=== PATIENT | male | born 1940 | race Caucasian/White ===

== ENCOUNTER 2018-10-07 01:24 | Emergency (ER) | payer MEDICARE, BC ==
[~2018-10-07] VITALS: Ht 180.3 cm; Wt 92.7 kg
[2018-10-07 02:06] LABS: BASOPHILS % (AUTO) 0.6 % (0-1); EOSINOPHILS % (AUTO) 0.6 % (0-6); HEMATOCRIT 49.1 % (42.0-52.0); HEMOGLOBIN 16.6 g/dl (14.0-17.9); LYMPHOCYTES # (AUTO) 1.9 X10'3 (1.1-4.8); LYMPHOCYTES % (AUTO) 27.8 % (21-51); MEAN CORPUSCULAR HEMOGLOBIN 32.4 PG (27.0-31.0); MEAN CORPUSCULAR HGB CONC 33.7 g/dL (33.0-36.5); MEAN CORPUSCULAR VOLUME 96.1 FL (78-98); MEAN PLATELET VOLUME 9.3 FL (7.4-10.4); MONOCYTES # (AUTO) 0.6 X10'3 (0-0.9); MONOCYTES % (AUTO) 9.5 % (2-12); NEUTROPHILS # (AUTO) 4.2 X10'3 (1.8-7.7); NEUTROPHILS % (AUTO) 61.5 % (42-75); PLATELET COUNT 133 X10'3 (140-440); RED BLOOD COUNT 5.11 X10'6 (4.70-6.10); RED CELL DISTRIBUTION WIDTH 14.8 % (11.5-14.5); WHITE BLOOD COUNT 6.7 X10'3 (4.5-11.0)
[2018-10-07 02:16] LABS: ALANINE AMINOTRANSFERASE 50 U/L (12-78); ALBUMIN 3.5 G/DL (3.4-5.0); ALBUMIN/GLOBULIN RATIO 1.1 (1.1-1.5); ANION GAP 9 (8-16); ASPARTATE AMINO TRANSFERASE 32 U/L (10-37); BILIRUBIN,TOTAL 0.6 MG/DL (0.1-1.0); BLOOD UREA NITROGEN 27 MG/DL (7-18); CALCIUM 8.6 MG/DL (8.5-10.1); CHLORIDE 104 MMOL/L (99-107); CREATININE 1.35 MG/DL (0.60-1.10); GLUCOSE 122 MG/DL (70-104); PARTIAL THROMBOPLASTIN TIME 38 SECONDS (22-32); POTASSIUM 4.1 MMOL/L (3.5-5.1); SODIUM 141 MMOL/L (135-145); TOTAL CARBON DIOXIDE 27.6 MMOL/L (24-32); TOTAL PROTEIN 6.6 G/DL (6.4-8.2); eGFR 51 ML/MIN
[2018-10-07 02:43] LABS: ALKALINE PHOSPHATASE 78 IU/L (46-116)
[2018-10-07] MEDS ORDERED: COU5T PO (05:15)
[2018-10-07] MEDS ORDERED: MAGN400T28 PO (05:15)
[2018-10-07] MEDS ORDERED: SIMV80TA89 PO (05:15)
[2018-10-07] MEDS ORDERED: ENAL20TA PO (05:15)
[2018-10-07] MEDS ORDERED: FURO80TA3 PO (05:15)
[2018-10-07] MEDS ORDERED: SILD20TA2 PO (05:15)
[2018-10-07] MEDS ORDERED: CARV6.253 PO (05:15)
[2018-10-07] MEDS ORDERED: PRIM250T32 PO (05:15)
[2018-10-07] MEDS ORDERED: POTA10TA36 PO (05:15)
[2018-10-07] MEDS ORDERED: VARD20TA31 PO (05:15)
[2018-10-07] MEDS ORDERED: SILD20TA PO (05:15)
[2018-10-07] MEDS ORDERED: SPIR25TA5 PO (05:15)
[2018-10-07 05:41] LABS: CHOL/HDL RATIO 4.3 (0.00-4.99); CHOLESTEROL 139 MG/DL (0-200); HDL CHOLESTEROL 32 MG/DL (35-60); LDL CHOLESTEROL 87 MG/DL (50-100); TRIGLYCERIDES 156 MG/DL (20-135)
[2018-10-07 05:45] VITALS: BP 97/59
[2018-10-07 05:46] LABS: D-DIMER 0.25 MG/L FEU (0-0.50)
== END 2018-10-07 05:46 | disposition home or self-care (01) ==
LOC: ER 01:25
DX: R07.89 Other chest pain (principal); R06.02 Shortness of breath; R00.2 Palpitations; R53.1 Weakness; R05 Cough; R61 Generalized hyperhidrosis; I48.91 Unspecified atrial fibrillation; I10 Essential (primary) hypertension; Z98.890 Other specified postprocedural states; Z79.899 Other long term (current) drug therapy
CPT/HCPCS: 36415; 71045; 80053; 80061; 84439; 84443; 84484; 85025; 85379; 85610; 85730; 93005; 99285

== ENCOUNTER 2018-10-28 09:47 | Inpatient (IN) | payer MEDICARE, BC ==
[~2018-10-28] VITALS: Ht 180.3 cm; Wt 99.5 kg
[~2018-10-28 09:47] MED LIST: CARV6.253 PO; COU5T PO; ENAL20TA PO; FURO80TA3 PO; MAGN400T28 PO; POTA10TA36 PO; PRIM250T32 PO; SILD20TA PO; SILD20TA2 PO; SIMV80TA89 PO; SPIR25TA5 PO; VARD20TA31 PO
[2018-10-28 11:13] LABS: BASOPHILS % (AUTO) 0.4 % (0-1); EOSINOPHILS % (AUTO) 0.5 % (0-6); HEMATOCRIT 51.8 % (42.0-52.0); HEMOGLOBIN 17.1 g/dl (14.0-17.9); LYMPHOCYTES # (AUTO) 1.7 X10'3 (1.1-4.8); LYMPHOCYTES % (AUTO) 25.4 % (21-51); MEAN CORPUSCULAR HEMOGLOBIN 32.7 PG (27.0-31.0); MEAN CORPUSCULAR VOLUME 98.9 FL (78-98); MEAN PLATELET VOLUME 9.6 FL (7.4-10.4); MONOCYTES # (AUTO) 0.8 X10'3 (0-0.9); MONOCYTES % (AUTO) 11.1 % (2-12); NEUTROPHILS # (AUTO) 4.3 X10'3 (1.8-7.7); NEUTROPHILS % (AUTO) 62.6 % (42-75); PLATELET COUNT 99 X10'3 (140-440); RED BLOOD COUNT 5.24 X10'6 (4.70-6.10); RED CELL DISTRIBUTION WIDTH 16.9 % (11.5-14.5); WHITE BLOOD COUNT 6.8 X10'3 (4.5-11.0)
[2018-10-28 11:31] LABS: ALANINE AMINOTRANSFERASE 163 U/L (12-78); ALBUMIN 3.3 G/DL (3.4-5.0); ALBUMIN/GLOBULIN RATIO 1.2 (1.1-1.5); ALKALINE PHOSPHATASE 160 IU/L (46-116); ANION GAP 7 (8-16); ASPARTATE AMINO TRANSFERASE 130 U/L (10-37); BILIRUBIN,TOTAL 0.8 MG/DL (0.1-1.0); BLOOD UREA NITROGEN 37 MG/DL (7-18); BUN/CREATININE RATIO 23.9 (5.4-32.0); CALCIUM 8.3 MG/DL (8.5-10.1); CHLORIDE 105 MMOL/L (99-107); CREATININE 1.55 MG/DL (0.60-1.10); GLUCOSE 99 MG/DL (70-104); POTASSIUM 5.3 MMOL/L (3.5-5.1); SODIUM 139 MMOL/L (135-145); TOTAL CARBON DIOXIDE 27.2 MMOL/L (24-32); TOTAL PROTEIN 6.1 G/DL (6.4-8.2); eGFR 44 ML/MIN
[2018-10-28 11:34] LABS: PARTIAL THROMBOPLASTIN TIME 43 SECONDS (22-32)
[2018-10-28] MEDS ORDERED: furosemide 10 MG/1 ML 10ml inj IV ONE (12:45)
[2018-10-28] MEDS ORDERED: FLO0.4C PO (13:07)
[2018-10-28] MEDS ORDERED: ondansetron/PF 4mg/2ml inj IV PRN (13:20)
[2018-10-28] MEDS ORDERED: magnesium hydroxide 30ml (MOM) UD suspension PO PRN (13:20)
[2018-10-28] MEDS ORDERED: mag hydrox/Alum hydrox/simeth 30ml oral suspension PO PRN (13:20)
[2018-10-28] MEDS ORDERED: potassium Cl 20 mEq SR tablet PO PRN ×2 (13:20)
[2018-10-28] MEDS ORDERED: acetaminophen 325mg tablet PO PRN ×2 (13:20)
[2018-10-28] MEDS ORDERED: potassium CL 10mEq/100ml bag 100 ML IV PRN ×2 (13:20)
--- NOTE | 2018-10-28 14:30 | NUR ---
Pt arrived on unit from ED. Vitals stable. Oriented Pt to room and call light.
[2018-10-28] MEDS ORDERED: BIMA2.5D EACHEYE (14:44)
[2018-10-28 15:00] VITALS: BP 104/79
[2018-10-28 18:00] VITALS: BP 104/76
--- NOTE | 2018-10-28 18:00 | NUR ---
Problems reprioritized. Patient report given, questions answered & plan of care reviewed with Liss BAGLEY.
--- NOTE | 2018-10-28 18:37 | NUR ---
Patient in room PCU 3026. I have received report from David BAGLEY and had the opportunity to ask questions and assume patient care.
[2018-10-28] MEDS: furosemide 10 MG/1 ML 10ml inj IV SCH (20:47)
[2018-10-28] MEDS: carvedilol 6.25mg tablet PO SCH (20:48)
[2018-10-28] MEDS: spironolactone 25 MG tablet PO SCH (20:48)
[2018-10-28] MEDS: primidone 250mg tablet PO SCH (20:50)
[2018-10-28] MEDS: latanoprost 0.005% 2.5ml ophthalmic drops EACHEYE SCH (20:50)
[2018-10-28 22:00] VITALS: BP 94/74
[2018-10-28] MEDS: temazepam 15mg capsule PO PRN (23:16)
[2018-10-28] MEDS: HYDROcodone/acetaminophen 5mg/325mg tablet PO PRN (23:17)
[2018-10-29] VITALS (17 sets, daily range): BP systolic 73–99; BP diastolic 46–74
--- NOTE | 2018-10-29 05:00 | NUR ---
Assisted to BR to void. Incont of lge void in BR, unable to measure.
[2018-10-29 05:28] LABS: EOSINOPHILS % (AUTO) 0.3 % (0-6); MONOCYTES # (AUTO) 0.8 X10'3 (0-0.9); NEUTROPHILS # (AUTO) 4.9 X10'3 (1.8-7.7); WHITE BLOOD COUNT 7.9 X10'3 (4.5-11.0)
[2018-10-29 05:30] LABS: ALBUMIN 3.3 G/DL (3.4-5.0); ANION GAP 6 (8-16); BASOPHILS % (AUTO) 0.2 % (0-1); BLOOD UREA NITROGEN 37 MG/DL (7-18); BUN/CREATININE RATIO 23.1 (5.4-32.0); CALCIUM 8.6 MG/DL (8.5-10.1); CHLORIDE 102 MMOL/L (99-107); GLUCOSE 89 MG/DL (70-104); HEMOGLOBIN 17.6 g/dl (14.0-17.9); LYMPHOCYTES # (AUTO) 2.2 X10'3 (1.1-4.8); LYMPHOCYTES % (AUTO) 28.3 % (21-51); MAGNESIUM 2.1 MG/DL (1.5-2.4); MEAN CORPUSCULAR HEMOGLOBIN 33.9 PG (27.0-31.0); MEAN CORPUSCULAR HGB CONC 33.9 g/dL (33.0-36.5); MEAN CORPUSCULAR VOLUME 100.1 FL (78-98); MEAN PLATELET VOLUME 10.2 FL (7.4-10.4); MONOCYTES % (AUTO) 9.6 % (2-12); NEUTROPHILS % (AUTO) 61.6 % (42-75); PLATELET COUNT 83 X10'3 (140-440); POTASSIUM 5.2 MMOL/L (3.5-5.1); RED BLOOD COUNT 5.19 X10'6 (4.70-6.10); RED CELL DISTRIBUTION WIDTH 16.6 % (11.5-14.5); SODIUM 136 MMOL/L (135-145); TOTAL CARBON DIOXIDE 28.2 MMOL/L (24-32); eGFR 42 ML/MIN
--- NOTE | 2018-10-29 06:52 | NUR ---
Patient in room PCU 3026. I have received report from KEVYN Leija and had the opportunity to ask questions and assume patient care. Pt is sleeping with neighbor's TV blasting. Will continue to monitor.
--- NOTE | 2018-10-29 06:53 | NUR ---
Problems reprioritized. Patient report given, questions answered & plan of care reviewed with Dinah RN.
--- NOTE | 2018-10-29 07:53 | NUR ---
Sent to Dr Damian PAGER ID: [phone] MESSAGE: RE: Erik Suazo. FYI BP trending down. Most recent is 88/75 with a MAP of 81. HR 75. Holding heart meds and both diuretics. Also, pt has spironolactone ordered; K was 5.2 today. -Dniah [phone]
[2018-10-29] MEDS: atorvastatin 20mg tablet PO SCH (07:54)
[2018-10-29] MEDS: primidone 250mg tablet PO SCH ×2 (07:55→20:10)
[2018-10-29] MEDS: K and/or MAG REPLACEMENT MC SCH (07:57)
[2018-10-29] MEDS: furosemide 10 MG/1 ML 10ml inj IV SCH ×3 (07:58→20:00)
[2018-10-29] MEDS: tamsulosin 0.4mg capsule PO SCH (07:58)
[2018-10-29] MEDS: carvedilol 6.25mg tablet PO SCH ×3 (07:58→20:00)
[2018-10-29] MEDS: spironolactone 25 MG tablet PO SCH ×3 (07:58→20:00)
[2018-10-29] MEDS: lisinopril 20mg tablet PO SCH ×2 (07:58→08:29)
[2018-10-29] MEDS ORDERED: ENALAPRIL MALEATE 20 MG PO SCH (08:00)
--- NOTE | 2018-10-29 08:24 | NUR ---
Dr Damian informed of pt's BP 88/75 MAP 81; per Dr Damian, ok to give Coreg, Lasix, Aldactone, and Lisinopril staggered.
--- NOTE | 2018-10-29 12:09 | NUR ---
Malnutrition consult: Current documented wt is 99.5 kg using chair scale with obese BMI of 30.6 and no reliable wt hx in EMR. Per H&P pt c/o gaining wt over the past 5 weeks and has been admit here with CHF exacerbation to get IV diuresing. Wt likely to fluctuate with changes in fluid status. Pt documented with 50-75% PO intake first meal on heart healthy diet and appears well-nourished per H&P. Pt with BLE 1+ trace edema and no decrease in muscle strength. Pt currently does not meet criteria for malnutrition. Will continue to follow. Addendum: 10/29/18 at [address] Amended: Links added.
[2018-10-29] MEDS: DOBUTamine-DoBUTrex 500mg/D5W 250 ML IV SCH (14:31)
--- NOTE | 2018-10-29 15:19 | NUR ---
Sent to Dr Damian PAGER ID: [phone] MESSAGE: RE: Erik Suazo [id number]. Pt started on dobutamine drip @ 3mcg/kg. BP 79/60, 80/58 upon retake. MAP 64 each time. FYI unless advised otherwise. -Dinah [phone]
--- NOTE | 2018-10-29 18:32 | NUR ---
Patient in room PCU 3026. I have received report from Dinah BAGLEY and had the opportunity to ask questions and assume patient care.
--- NOTE | 2018-10-29 18:41 | NUR ---
Problems reprioritized. Patient report given, questions answered & plan of care reviewed with KEVYN Leija.
[2018-10-29] MEDS: latanoprost 0.005% 2.5ml ophthalmic drops EACHEYE SCH (20:10)
[2018-10-29] MEDS: HYDROcodone/acetaminophen 5mg/325mg tablet PO PRN (20:11)
--- NOTE | 2018-10-29 21:00 | NUR ---
Coreg, Aldactone, and Lasix held rth Addendum: 10/29/18 at 2150 by Liss Monroy RN Coreg, Aldactone, and IV Lasix held due to persistent SBP in 90s and 80s as well as the K of 5.2 this am. Dobutamine infusing at 3mcg as ordered. To contact MD regarding this response to Dobutamine dose.
[2018-10-29] MEDS: temazepam 15mg capsule PO PRN (21:31)
--- NOTE | 2018-10-29 23:00 | NUR ---
Dr. Ansari returned call and BPs and MAP readings reported. No new orders given at this time.
[2018-10-30] VITALS (8 sets, daily range): BP systolic 79–110; BP diastolic 52–86
[2018-10-30] MEDS: HYDROcodone/acetaminophen 5mg/325mg tablet PO PRN (02:44)
[2018-10-30 06:02] LABS: BASOPHILS % (AUTO) 0.2 % (0-1); EOSINOPHILS % (AUTO) 0.6 % (0-6); HEMATOCRIT 45.3 % (42.0-52.0); HEMOGLOBIN 15.1 g/dl (14.0-17.9); LYMPHOCYTES # (AUTO) 1.9 X10'3 (1.1-4.8); LYMPHOCYTES % (AUTO) 31.2 % (21-51); MEAN CORPUSCULAR HEMOGLOBIN 32.9 PG (27.0-31.0); MEAN CORPUSCULAR HGB CONC 33.4 g/dL (33.0-36.5); MEAN CORPUSCULAR VOLUME 98.7 FL (78-98); MEAN PLATELET VOLUME 9.4 FL (7.4-10.4); MONOCYTES # (AUTO) 0.8 X10'3 (0-0.9); MONOCYTES % (AUTO) 12.2 % (2-12); NEUTROPHILS # (AUTO) 3.5 X10'3 (1.8-7.7); NEUTROPHILS % (AUTO) 55.8 % (42-75); PLATELET COUNT 82 X10'3 (140-440); RED BLOOD COUNT 4.59 X10'6 (4.70-6.10); RED CELL DISTRIBUTION WIDTH 16.8 % (11.5-14.5); WHITE BLOOD COUNT 6.2 X10'3 (4.5-11.0)
--- NOTE | 2018-10-30 06:19 | NUR ---
Problems reprioritized. Patient report given, questions answered & plan of care reviewed with Jesse BAGLEY.
[2018-10-30 06:35] LABS: ALBUMIN 2.7 G/DL (3.4-5.0); ANION GAP 8 (8-16); BLOOD UREA NITROGEN 35 MG/DL (7-18); BUN/CREATININE RATIO 26.1 (5.4-32.0); CALCIUM 7.9 MG/DL (8.5-10.1); CHLORIDE 103 MMOL/L (99-107); CREATININE 1.34 MG/DL (0.60-1.10); GLUCOSE 103 MG/DL (70-104); MAGNESIUM 2.1 MG/DL (1.5-2.4); SODIUM 139 MMOL/L (135-145); TOTAL CARBON DIOXIDE 28.1 MMOL/L (24-32); eGFR 52 ML/MIN
--- NOTE | 2018-10-30 06:58 | NUR ---
Patient in room PCU 3026. I have received report from KEVYN Leija and had the opportunity to ask questions and assume patient care.
[2018-10-30] MEDS: atorvastatin 20mg tablet PO SCH (07:17)
[2018-10-30] MEDS: primidone 250mg tablet PO SCH ×2 (07:19→20:43)
[2018-10-30] MEDS: tamsulosin 0.4mg capsule PO SCH (07:19)
[2018-10-30] MEDS: K and/or MAG REPLACEMENT MC SCH (08:00)
[2018-10-30] MEDS: spironolactone 25 MG tablet PO SCH ×2 (08:00→20:00)
[2018-10-30] MEDS: lisinopril 20mg tablet PO SCH (08:00)
[2018-10-30] MEDS: carvedilol 6.25mg tablet PO SCH ×2 (08:00→20:44)
[2018-10-30] MEDS: furosemide 10 MG/1 ML 10ml inj IV SCH (08:00)
--- NOTE | 2018-10-30 09:49 | NUR ---
F/u: Pt Na-restricted 500mg/d diet ordered. Unable to provide only 500mg Na daily and pt Na WNL since admit on prior heart healthy diet receiving ~1800mg/d Na w/ 75-100% PO. Will continue to monitor. Addendum: 10/30/18 at [address] Amended: Links added.
--- NOTE | 2018-10-30 11:14 | NUR ---
PAGER ID: [phone] MESSAGE: [id number]-Suazo. Can you call me to confirm the Dobutamine dosage? Jesse BAGLEY [phone]
[2018-10-30] MEDS: DOBUTamine-DoBUTrex 500mg/D5W 250 ML IV SCH (17:56)
--- NOTE | 2018-10-30 18:07 | NUR ---
Orienteer documentation: I have reviewed and agree with all interventions, assessments performed and documented by Kaelyn BAGLEY.
--- NOTE | 2018-10-30 18:26 | NUR ---
Patient in room PCU 3026. I have received report from Jesse and Kavita BAGLEY and had the opportunity to ask questions and assume patient care.
--- NOTE | 2018-10-30 18:36 | NUR ---
Problems reprioritized. Patient report given, questions answered & plan of care reviewed with KEVYN Be.
--- NOTE | 2018-10-30 20:00 | NUR ---
Telephone order Dr Jerry change parameters to IV Lasix 40mg BID hold if SBP < 90 and change parameters of PO 6.25mg Coreg BID hold SBP <80 Will continue to monitor
[2018-10-30] MEDS: furosemide 40mg/4ml inj IV SCH (20:11)
[2018-10-30] MEDS: latanoprost 0.005% 2.5ml ophthalmic drops EACHEYE SCH (20:44)
[2018-10-30] MEDS ORDERED: warfarin 5mg tablet PO ONE (21:00)
--- NOTE | 2018-10-30 22:35 | NUR ---
Pt requested sleeping pill and to be moved to a different room.
[2018-10-31] VITALS (10 sets, daily range): BP systolic 79–103; BP diastolic 52–79
[2018-10-31 06:04] LABS: HEMATOCRIT 48.8 % (42.0-52.0); MEAN CORPUSCULAR HEMOGLOBIN 32.7 PG (27.0-31.0); MONOCYTES # (AUTO) 0.6 X10'3 (0-0.9); MONOCYTES % (AUTO) 10.4 % (2-12); RED CELL DISTRIBUTION WIDTH 17.2 % (11.5-14.5); WHITE BLOOD COUNT 5.9 X10'3 (4.5-11.0)
[2018-10-31 06:07] LABS: BASOPHILS % (AUTO) 0.7 % (0-1); EOSINOPHILS # (AUTO) 0.1 X10'3 (0-0.9); LYMPHOCYTES # (AUTO) 1.7 X10'3 (1.1-4.8); LYMPHOCYTES % (AUTO) 29.4 % (21-51); MEAN CORPUSCULAR HGB CONC 32.7 g/dL (33.0-36.5); MEAN CORPUSCULAR VOLUME 100.1 FL (78-98); MEAN PLATELET VOLUME 9.9 FL (7.4-10.4); NEUTROPHILS # (AUTO) 3.4 X10'3 (1.8-7.7); NEUTROPHILS % (AUTO) 58.5 % (42-75); PLATELET COUNT 85 X10'3 (140-440); RED BLOOD COUNT 4.88 X10'6 (4.70-6.10)
[2018-10-31 06:16] LABS: ALBUMIN 2.8 G/DL (3.4-5.0); ANION GAP 7 (8-16); BLOOD UREA NITROGEN 22 MG/DL (7-18); BUN/CREATININE RATIO 19.6 (5.4-32.0); CALCIUM 7.8 MG/DL (8.5-10.1); CHLORIDE 103 MMOL/L (99-107); CREATININE 1.12 MG/DL (0.60-1.10); GLUCOSE 85 MG/DL (70-104); POTASSIUM 4.5 MMOL/L (3.5-5.1); SODIUM 139 MMOL/L (135-145); TOTAL CARBON DIOXIDE 28.8 MMOL/L (24-32); eGFR 64 ML/MIN
--- NOTE | 2018-10-31 06:24 | NUR ---
Problems reprioritized. Patient report given, questions answered & plan of care reviewed with Corinna BAGLEY.
--- NOTE | 2018-10-31 06:36 | NUR ---
Patient in room PCU 3023. I have received report from Indiana BAGLEY and had the opportunity to ask questions and assume patient care. Pt is in bed sleeping, all needs met at this time. will continue to monitor.
[2018-10-31] MEDS ORDERED: enoxaparin 40mg/0.4ml syringe SUBCUT SCH (08:00)
[2018-10-31] MEDS: K and/or MAG REPLACEMENT MC SCH (08:00)
[2018-10-31] MEDS: spironolactone 25 MG tablet PO SCH ×3 (08:25→21:20)
[2018-10-31] MEDS: tamsulosin 0.4mg capsule PO SCH (08:26)
[2018-10-31] MEDS: lisinopril 10 MG tablet PO SCH (08:26)
[2018-10-31] MEDS: furosemide 40mg/4ml inj IV SCH ×3 (08:26→21:20)
[2018-10-31] MEDS: carvedilol 6.25mg tablet PO SCH ×3 (08:26→21:20)
[2018-10-31] MEDS: atorvastatin 20mg tablet PO SCH (08:26)
[2018-10-31] MEDS: primidone 250mg tablet PO SCH ×2 (08:26→20:09)
[2018-10-31] MEDS: DOBUTamine-DoBUTrex 500mg/D5W 250 ML IV SCH (17:36)
--- NOTE | 2018-10-31 17:45 | NUR ---
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 fib, pt also has BP: 82/60 (66), pt is asymptomatic. Thanks Cielo [phone]
--- NOTE | 2018-10-31 18:27 | NUR ---
Problems reprioritized. Patient report given, questions answered & plan of care reviewed with Oksana BAGLEY.
--- NOTE | 2018-10-31 18:57 | NUR ---
Patient in room PCU 3023. I have received report from Corinan BAGLEY and had the opportunity to ask questions and assume patient care.
[2018-10-31] MEDS ORDERED: warfarin 7.5mg tablet PO ONE (21:00)
[2018-10-31] MEDS: latanoprost 0.005% 2.5ml ophthalmic drops EACHEYE SCH (21:20)
[2018-10-31] MEDS ORDERED: zolpidem 5mg tablet PO PRN (22:20)
[2018-11-01] VITALS (15 sets, daily range): BP systolic 83–150; BP diastolic 62–80
[2018-11-01 05:11] LABS: BASOPHILS # (AUTO) 0.1 X10'3 (0-0.2); EOSINOPHILS % (AUTO) 0.7 % (0-6); HEMOGLOBIN 15.3 g/dl (14.0-17.9); LYMPHOCYTES # (AUTO) 1.4 X10'3 (1.1-4.8); LYMPHOCYTES % (AUTO) 23.9 % (21-51); MEAN CORPUSCULAR HEMOGLOBIN 32.9 PG (27.0-31.0); MEAN CORPUSCULAR HGB CONC 33.2 g/dL (33.0-36.5); MEAN PLATELET VOLUME 9.1 FL (7.4-10.4); MONOCYTES # (AUTO) 0.6 X10'3 (0-0.9); MONOCYTES % (AUTO) 9.7 % (2-12); NEUTROPHILS # (AUTO) 3.7 X10'3 (1.8-7.7); NEUTROPHILS % (AUTO) 63.7 % (42-75); PLATELET COUNT 76 X10'3 (140-440); RED BLOOD COUNT 4.64 X10'6 (4.70-6.10); RED CELL DISTRIBUTION WIDTH 17.3 % (11.5-14.5); WHITE BLOOD COUNT 5.8 X10'3 (4.5-11.0)
[2018-11-01 05:37] LABS: ALBUMIN 2.7 G/DL (3.4-5.0); ANION GAP 5 (8-16); CALCIUM 7.6 MG/DL (8.5-10.1); CHLORIDE 102 MMOL/L (99-107); CREATININE 1.34 MG/DL (0.60-1.10); GLUCOSE 81 MG/DL (70-104); POTASSIUM 4.5 MMOL/L (3.5-5.1); SODIUM 138 MMOL/L (135-145); TOTAL CARBON DIOXIDE 31.2 MMOL/L (24-32); eGFR 52 ML/MIN
[2018-11-01 05:51] LABS: ANISOCYTOSIS 1+; LARGE PLATELETS FEW; PLATELET ESTIMATE DECREASED
[2018-11-01 05:55] LABS: BLOOD UREA NITROGEN 22 MG/DL (7-18); BUN/CREATININE RATIO 16.4 (5.4-32.0)
--- NOTE | 2018-11-01 06:20 | NUR ---
Problems reprioritized. Patient report given, questions answered & plan of care reviewed with Karen BAGLEY.
--- NOTE | 2018-11-01 06:49 | NUR ---
Patient in room PCU 3023. I have received report from Oksana BAGLEY and had the opportunity to ask questions and assume patient care. Patient asleep in bed. In no acute distress. Dobutamine gtt @ 2.99 mcg/kg/min.
[2018-11-01] MEDS: K and/or MAG REPLACEMENT MC SCH (08:00)
[2018-11-01] MEDS: lisinopril 10 MG tablet PO SCH (08:16)
[2018-11-01] MEDS: digoxin 250mcg (0.25mg) tablet PO SCH (08:16)
[2018-11-01] MEDS: tamsulosin 0.4mg capsule PO SCH (08:16)
[2018-11-01] MEDS: atorvastatin 20mg tablet PO SCH (08:16)
[2018-11-01] MEDS: carvedilol 6.25mg tablet PO SCH ×2 (08:16→20:00)
[2018-11-01] MEDS: furosemide 40mg/4ml inj IV SCH ×2 (08:17→20:00)
[2018-11-01] MEDS: primidone 250mg tablet PO SCH ×2 (08:17→20:00)
[2018-11-01] MEDS: spironolactone 25 MG tablet PO SCH ×2 (08:17→20:00)
--- NOTE | 2018-11-01 19:03 | NUR ---
Problems reprioritized. Patient report given, questions answered & plan of care reviewed with Patient stable at transfer of care..
--- NOTE | 2018-11-01 19:03 | NUR ---
Patient in room PCU 3023. I have received report from Karen BAGLEY and had the opportunity to ask questions and assume patient care.
[2018-11-01] MEDS: DOBUTamine-DoBUTrex 500mg/D5W 250 ML IV SCH (19:58)
[2018-11-01] MEDS: latanoprost 0.005% 2.5ml ophthalmic drops EACHEYE SCH (20:01)
[2018-11-01] MEDS ORDERED: warfarin 7.5mg tablet PO ONE (21:00)
[2018-11-02] VITALS (17 sets, daily range): BP systolic 78–124; BP diastolic 50–102
[2018-11-02 05:20] LABS: BASOPHILS % (AUTO) 0.4 % (0-1); EOSINOPHILS # (AUTO) 0.1 X10'3 (0-0.9); EOSINOPHILS % (AUTO) 1.2 % (0-6); HEMATOCRIT 45.1 % (42.0-52.0); LYMPHOCYTES # (AUTO) 1.5 X10'3 (1.1-4.8); LYMPHOCYTES % (AUTO) 27.7 % (21-51); MEAN CORPUSCULAR HEMOGLOBIN 32.8 PG (27.0-31.0); MEAN CORPUSCULAR HGB CONC 33.2 g/dL (33.0-36.5); MEAN CORPUSCULAR VOLUME 98.8 FL (78-98); MEAN PLATELET VOLUME 9.6 FL (7.4-10.4); MONOCYTES # (AUTO) 0.7 X10'3 (0-0.9); MONOCYTES % (AUTO) 12.3 % (2-12); NEUTROPHILS # (AUTO) 3.2 X10'3 (1.8-7.7); NEUTROPHILS % (AUTO) 58.4 % (42-75); PLATELET COUNT 87 X10'3 (140-440); RED BLOOD COUNT 4.56 X10'6 (4.70-6.10); RED CELL DISTRIBUTION WIDTH 17.5 % (11.5-14.5); WHITE BLOOD COUNT 5.5 X10'3 (4.5-11.0)
[2018-11-02 05:34] LABS: ALBUMIN 2.7 G/DL (3.4-5.0); ANION GAP 7 (8-16); BLOOD UREA NITROGEN 16 MG/DL (7-18); BUN/CREATININE RATIO 14.2 (5.4-32.0); CALCIUM 7.5 MG/DL (8.5-10.1); CHLORIDE 104 MMOL/L (99-107); CREATININE 1.13 MG/DL (0.60-1.10); GLUCOSE 85 MG/DL (70-104); POTASSIUM 4.2 MMOL/L (3.5-5.1); SODIUM 140 MMOL/L (135-145); TOTAL CARBON DIOXIDE 29.4 MMOL/L (24-32); eGFR 63 ML/MIN
--- NOTE | 2018-11-02 06:37 | NUR ---
Problems reprioritized. Patient report given, questions answered & plan of care reviewed with Karen BAGLEY and Jocelyn BAGLEY.
--- NOTE | 2018-11-02 06:49 | NUR ---
Patient in room PCU 3023. I have received report from Oksana BAGLEY and had the opportunity to ask questions and assume patient care. Patient asleep in bed. Dobutamine gtt @ 2.99 mcg/kg. All immediate needs met at this time.
--- NOTE | 2018-11-02 06:51 | NUR ---
Patient in room PCU 3023b. I have received report from KEVYN Gandhi and had the opportunity to ask questions and assume patient care. Pt asleep in bed at this time Dobutamine gtt running at 2.99mcg. All needs met.
[2018-11-02] MEDS: atorvastatin 20mg tablet PO SCH (07:46)
[2018-11-02] MEDS: lisinopril 10 MG tablet PO SCH (07:46)
[2018-11-02] MEDS: spironolactone 25 MG tablet PO SCH ×2 (07:46→20:27)
[2018-11-02] MEDS: primidone 250mg tablet PO SCH ×2 (07:47→20:27)
[2018-11-02] MEDS: digoxin 250mcg (0.25mg) tablet PO SCH (07:47)
[2018-11-02] MEDS: carvedilol 6.25mg tablet PO SCH ×2 (07:47→20:25)
[2018-11-02] MEDS: tamsulosin 0.4mg capsule PO SCH ×2 (07:47→08:00)
[2018-11-02] MEDS: furosemide 40mg/4ml inj IV SCH (07:47)
[2018-11-02] MEDS: K and/or MAG REPLACEMENT MC SCH (07:48)
--- NOTE | 2018-11-02 08:50 | NUR ---
New orders from Dr. Damian: Discontinue flomax 0.4 mg PO. Stop dobutamine gtt 11/03 0000.
--- NOTE | 2018-11-02 11:03 | NUR ---
Initial: Pt PO 75-100% meals meeting needs. LBM 11/01. No nutrition concerns at this time. Will continue to monitor. Malnutrition consult: Current documented wt is 99.5 kg using chair scale with obese BMI of 30.6 and no reliable wt hx in EMR. Per H&P pt c/o gaining wt over the past 5 weeks and has been admit here with CHF exacerbation to get IV diuresing. Wt likely to fluctuate with changes in fluid status. Pt documented with 50-75% PO intake first meal on heart healthy diet and appears well-nourished per H&P. Pt with BLE 1+ trace edema and no decrease in muscle strength. Pt currently does not meet criteria for malnutrition. Will continue to follow. Rec: 1. continue Na-restricted/heart healthy diet per MD 2. wt per rx Addendum: 11/02/18 at [address] Amended: Links added.
--- NOTE | 2018-11-02 17:19 | NUR ---
New orders from Dr. Jerry: D/C 40 mg IV lasix now. Start 80 mg PO lasix BID start @ 11/02.
--- NOTE | 2018-11-02 18:09 | NUR ---
Orientee documentation: I have reviewed and agree with all interventions, assessments performed and documented by KEVYN Banks. Orientee Medication Administration: For this medication-pass time frame, all medication were reviewed, dispensed, administered and documented per hospital policy by KEVYN Banks.
--- NOTE | 2018-11-02 18:32 | NUR ---
Problems reprioritized. Patient report given, questions answered & plan of care reviewed with Cristóbal BAGLEY. Patient stable at transfer of care.
--- NOTE | 2018-11-02 19:44 | NUR ---
Patient in room PCU 3023b. I have received report from Karen, RN and KEVYN Banks and had the opportunity to ask questions and assume patient care. Patient awake for bedside report and stable at this time with at bedside. 20 G L AC saline locked and on room air. Will continue to monitor closely.
[2018-11-02] MEDS: furosemide 40mg tablet PO SCH (20:26)
[2018-11-02] MEDS: latanoprost 0.005% 2.5ml ophthalmic drops EACHEYE SCH (20:29)
[2018-11-02] MEDS ORDERED: warfarin 3mg tablet PO ONE (21:00)
[2018-11-03] VITALS (7 sets, daily range): BP systolic 89–96; BP diastolic 62–76
--- NOTE | 2018-11-03 00:10 | NUR ---
Dobutamine drip DC'd at 0000 per provider order. Patient has 20G L AC and is saline locked. Will continue to monitor closely. Addendum: 11/03/18 at 0200 by Beena Rich RN q2hr VS from [id number] completed and charted.
--- NOTE | 2018-11-03 06:22 | NUR ---
Patient in room PCU 3023. I have received report from Cristóbal BAGLEY and had the opportunity to ask questions and assume patient care.
--- NOTE | 2018-11-03 06:29 | NUR ---
Problems reprioritized. Patient report given, questions answered & plan of care reviewed with KEVYN Barlow and KEVYN Boyd.
[2018-11-03] MEDS: carvedilol 6.25mg tablet PO SCH ×2 (07:30→20:17)
[2018-11-03] MEDS: lisinopril 10 MG tablet PO SCH (07:32)
[2018-11-03] MEDS: atorvastatin 20mg tablet PO SCH (07:32)
[2018-11-03] MEDS: furosemide 40mg tablet PO SCH ×2 (07:32→20:10)
[2018-11-03] MEDS: primidone 250mg tablet PO SCH ×2 (07:33→20:10)
[2018-11-03] MEDS: spironolactone 25 MG tablet PO SCH ×2 (07:33→20:08)
[2018-11-03] MEDS: digoxin 250mcg (0.25mg) tablet PO SCH (07:34)
[2018-11-03] MEDS: K and/or MAG REPLACEMENT MC SCH (08:00)
[2018-11-03 09:06] LABS: ANION GAP 6 (8-16); BLOOD UREA NITROGEN 14 MG/DL (7-18); BUN/CREATININE RATIO 12.8 (5.4-32.0); CALCIUM 7.7 MG/DL (8.5-10.1); CHLORIDE 103 MMOL/L (99-107); CREATININE 1.09 MG/DL (0.60-1.10); GLUCOSE 122 MG/DL (70-104); SODIUM 139 MMOL/L (135-145); TOTAL CARBON DIOXIDE 30.4 MMOL/L (24-32); eGFR 66 ML/MIN
[2018-11-03 09:12] LABS: POTASSIUM 4.3 MMOL/L (3.5-5.1)
--- NOTE | 2018-11-03 17:51 | NUR ---
Orientee documentation: I have reviewed and agree with all interventions, assessments performed and documented by Deb BAGLEY. Orientee Medication Administration: For this medication-pass time frame, all medication were reviewed, dispensed, administered and documented per hospital policy by Deb BAGLEY.
--- NOTE | 2018-11-03 18:20 | NUR ---
Patient in room PCU 3023B. I have received report from KEVYN Boyd and had the opportunity to ask questions and assume patient care. Pt is resting comfortably accompanied by spose. A&O x 4, denies CP, n/v, or dizziness. Pt had already consume 800 ml of fluids out of 1500ml. Will continue to monitor
--- NOTE | 2018-11-03 18:20 | NUR ---
Problems reprioritized. Patient report given, questions answered & plan of care reviewed with Billy BAGLEY.
[2018-11-03] MEDS: latanoprost 0.005% 2.5ml ophthalmic drops EACHEYE SCH (20:16)
[2018-11-03] MEDS ORDERED: warfarin 3mg tablet PO ONE (21:00)
[2018-11-04 03:00] VITALS: BP 106/72
[2018-11-04 06:00] VITALS: BP 82/59
[2018-11-04 06:12] LABS: ALBUMIN 2.9 G/DL (3.4-5.0); ANION GAP 6 (8-16); BLOOD UREA NITROGEN 18 MG/DL (7-18); BUN/CREATININE RATIO 14.6 (5.4-32.0); CALCIUM 7.8 MG/DL (8.5-10.1); CHLORIDE 104 MMOL/L (99-107); CREATININE 1.23 MG/DL (0.60-1.10); GLUCOSE 113 MG/DL (70-104); POTASSIUM 4.3 MMOL/L (3.5-5.1); SODIUM 139 MMOL/L (135-145); TOTAL CARBON DIOXIDE 29.3 MMOL/L (24-32); eGFR 57 ML/MIN
--- NOTE | 2018-11-04 06:20 | NUR ---
Problems reprioritized. Patient report given, questions answered & plan of care reviewed with KEVYN Boyd.
--- NOTE | 2018-11-04 06:23 | NUR ---
Patient in room PCU 3023. I have received report from Betsy BAGLEY and had the opportunity to ask questions and assume patient care.
[2018-11-04] MEDS ORDERED: digoxin 125mcg (0.125mg) tablet PO SCH (08:00)
[2018-11-04] MEDS: K and/or MAG REPLACEMENT MC SCH (08:00)
[2018-11-04] MEDS: spironolactone 25 MG tablet PO SCH (08:06)
[2018-11-04] MEDS: furosemide 40mg tablet PO SCH (08:06)
[2018-11-04] MEDS: primidone 250mg tablet PO SCH (08:07)
[2018-11-04] MEDS: atorvastatin 20mg tablet PO SCH (08:07)
[2018-11-04] MEDS: carvedilol 6.25mg tablet PO SCH (08:07)
[2018-11-04 08:08] VITALS: BP_SYST 98
[2018-11-04] MEDS: lisinopril 10 MG tablet PO SCH (08:08)
[2018-11-04] MEDS ORDERED: DIGO125T5 PO (08:29)
--- NOTE | 2018-11-04 10:40 | NUR ---
Patient stable for discharge per MD orders. All discharge instructions reviewed with patient and all questions answered. New prescriptions called into patient preferred pharmacy. PIV & transmission specialist discontinued. Belongings collected and sent with patient. Patient leaving in private vehicle with . Patient wheeled to lobby by primary RN.
== END 2018-11-04 10:48 | disposition home or self-care (01) | DRG 682 ==
LOC: ER 09:47 → PCU 3S 15:13 → EDBEDREQ 17:30 → PCU 3S 10-30 22:40
PROVIDERS: ADMIT Hospitalist; ATTEND Internal Medicine
DX: N17.9 Acute kidney failure, unspecified (principal); I50.23 Acute on chronic systolic (congestive) heart failure; I13.0 Hypertensive heart and chronic kidney disease with heart failure and stage 1 through stage 4 chronic kidney disease, or unspecified chronic kidney disease; D68.8 Other specified coagulation defects; I43 Cardiomyopathy in diseases classified elsewhere; N18.3 Chronic kidney disease, stage 3 (moderate); I50.82 Biventricular heart failure; K76.1 Chronic passive congestion of liver; D69.6 Thrombocytopenia, unspecified; F32.9 Major depressive disorder, single episode, unspecified; T45.515A Adverse effect of anticoagulants, initial encounter; E78.5 Hyperlipidemia, unspecified; I48.91 Unspecified atrial fibrillation; R74.0 Nonspecific elevation of levels of transaminase and lactic acid dehydrogenase [LDH]; I36.1 Nonrheumatic tricuspid (valve) insufficiency; N40.0 Benign prostatic hyperplasia without lower urinary tract symptoms; Z66 Do not resuscitate; Z79.01 Long term (current) use of anticoagulants; Z79.899 Other long term (current) drug therapy; Z95.2 Presence of prosthetic heart valve; Y92.89 Other specified places as the place of occurrence of the external cause
CPT/HCPCS: 36415; 71045; 80048; 80053; 80162; 83735; 83880; 84484; 85025; 85610; 85730; 87081; 93005; 93306; 96374; 97110; 97116; 97162; 97530; 99285; G0378; J1250; J1940

== ENCOUNTER 2019-05-17 15:54 | Inpatient (IN) | payer MEDICARE, BC ==
[~2019-05-17] VITALS: Ht 185.4 cm; Wt 89.5 kg
[~2019-05-17 15:54] MED LIST changes: +BIMA2.5D EACHEYE; +DIGO125T5 PO; +FLO0.4C PO; -MAGN400T28 PO; -POTA10TA36 PO; -SILD20TA PO; -SILD20TA2 PO; -VARD20TA31 PO
--- NOTE | 2019-05-17 16:11 | NUR ---
TRAUMA [address] HIGGINS AFTER NEWS COMMENTATOR CONSULT
[2019-05-17 16:31] LABS: BASOPHILS % (AUTO) 0.6 % (0-1); EOSINOPHILS % (AUTO) 0.4 % (0-6); HEMATOCRIT 46.9 % (42.0-52.0); HEMOGLOBIN 15.8 g/dl (14.0-17.9); LYMPHOCYTES # (AUTO) 1.5 X10'3 (1.1-4.8); LYMPHOCYTES % (AUTO) 30.1 % (21-51); MEAN CORPUSCULAR HEMOGLOBIN 33.4 PG (27.0-31.0); MEAN CORPUSCULAR HGB CONC 33.7 g/dL (33.0-36.5); MEAN CORPUSCULAR VOLUME 98.9 FL (78-98); MEAN PLATELET VOLUME 9.3 FL (7.4-10.4); MONOCYTES # (AUTO) 0.5 X10'3 (0-0.9); MONOCYTES % (AUTO) 11.1 % (2-12); NEUTROPHILS # (AUTO) 2.8 X10'3 (1.8-7.7); NEUTROPHILS % (AUTO) 57.8 % (42-75); PLATELET COUNT 133 X10'3 (140-440); RED BLOOD COUNT 4.74 X10'6 (4.70-6.10); RED CELL DISTRIBUTION WIDTH 16.2 % (11.5-14.5); WHITE BLOOD COUNT 4.9 X10'3 (4.5-11.0)
[2019-05-17 16:51] LABS: ALANINE AMINOTRANSFERASE 35 U/L (12-78); ALBUMIN 3.6 G/DL (3.4-5.0); ALKALINE PHOSPHATASE 126 IU/L (46-116); ANION GAP 6 (8-16); ASPARTATE AMINO TRANSFERASE 27 U/L (10-37); BILIRUBIN,TOTAL 0.7 MG/DL (0.1-1.0); BLOOD UREA NITROGEN 61 MG/DL (7-18); BUN/CREATININE RATIO 34.3 (5.4-32.0); CALCIUM 9.3 MG/DL (8.5-10.1); CHLORIDE 91 MMOL/L (99-107); CREATININE 1.78 MG/DL (0.60-1.10); GLUCOSE 104 MG/DL (70-104); POTASSIUM 3.9 MMOL/L (3.5-5.1); SODIUM 131 MMOL/L (135-145); TOTAL CARBON DIOXIDE 34.2 MMOL/L (24-32); TOTAL PROTEIN 7.1 G/DL (6.4-8.2); eGFR 37 ML/MIN
[2019-05-17] MEDS ORDERED: magnesium hydroxide 30ml (MOM) UD suspension PO PRN (17:40)
[2019-05-17] MEDS ORDERED: normal saline 1000ML IV soln IVB ONE (17:40)
[2019-05-17] MEDS ORDERED: ondansetron/PF 4mg/2ml inj IV PRN (17:40)
[2019-05-17] MEDS ORDERED: mag hydrox/Alum hydrox/simeth 30ml oral suspension PO PRN (17:40)
[2019-05-17] MEDS ORDERED: acetaminophen 325mg tablet PO PRN (17:40)
--- NOTE | 2019-05-17 18:18 | NUR ---
relieving RN for break, pt is resting quietly on BROWN honeycutt nurse at bedside, 500ml NS bolus infusing via pump, waiting for bed assignment
[2019-05-17] MEDS ORDERED: HYDR12.55 PO (18:22)
[2019-05-17] MEDS ORDERED: ZAR2.5T PO (18:22)
[2019-05-17] MEDS ORDERED: SACU1TAB PO (18:22)
[2019-05-17] MEDS ORDERED: TRAZ-256 PO (18:22)
[2019-05-17] MEDS ORDERED: BUME2TAB7 PO (18:22)
[2019-05-17] MEDS ORDERED: ALLO100T15 PO (18:22)
[2019-05-17] MEDS: normal saline 1000ml 1,000 ML IV SCH ×2 (18:26→22:32)
--- NOTE | 2019-05-17 18:54 | NUR ---
ASKED TO REVIEW CHART FOR ADMISSION TO FLOOR.
[2019-05-17] MEDS: sacubitril/valsartan 24mg-26mg tablet PO SCH (20:00)
[2019-05-17] MEDS: spironolactone 25 MG tablet PO SCH (20:00)
[2019-05-17] MEDS: heparin, porcine 5000 units/ml vial SQ SCH (20:00)
--- NOTE | 2019-05-17 20:05 | NUR ---
I have received report from KEVYN Fair and had the opportunity to ask questions and assume patient care.
--- NOTE | 2019-05-17 20:10 | NUR ---
Patient arrived to [facility] unit room 310 via [facility], with all known belongings and at bedside. patient transferred from [facility] to hospital bed via slide board.
[2019-05-17 20:20] VITALS: BP 93/64
[2019-05-17 22:00] VITALS: BP 86/62
[2019-05-17] MEDS: primidone 250mg tablet PO SCH (22:30)
[2019-05-17] MEDS: latanoprost 0.005% 2.5ml ophthalmic drops EACHEYE SCH (22:32)
[2019-05-17] MEDS: traZODone 50mg tablet PO SCH (22:32)
--- NOTE | 2019-05-17 23:04 | NUR ---
PAGER ID: [phone] MESSAGE: [phone] Erik Suazo. Critical INR 5.0. thank you KEVYN Aleman ext [phone]
[2019-05-17 23:30] VITALS: BP 98/65
[2019-05-18 02:00] VITALS: BP 95/66
[2019-05-18 04:30] LABS: BASOPHILS % (AUTO) 0.7 % (0-1); EOSINOPHILS % (AUTO) 0.7 % (0-6); HEMATOCRIT 46.6 % (42.0-52.0); LYMPHOCYTES # (AUTO) 1.6 X10'3 (1.1-4.8); LYMPHOCYTES % (AUTO) 30.6 % (21-51); MEAN CORPUSCULAR HGB CONC 34.3 g/dL (33.0-36.5); MEAN CORPUSCULAR VOLUME 99.3 FL (78-98); MEAN PLATELET VOLUME 9.4 FL (7.4-10.4); MONOCYTES # (AUTO) 0.5 X10'3 (0-0.9); MONOCYTES % (AUTO) 10.7 % (2-12); NEUTROPHILS # (AUTO) 2.9 X10'3 (1.8-7.7); NEUTROPHILS % (AUTO) 57.3 % (42-75); PLATELET COUNT 116 X10'3 (140-440); RED CELL DISTRIBUTION WIDTH 16.3 % (11.5-14.5); WHITE BLOOD COUNT 5.1 X10'3 (4.5-11.0)
[2019-05-18 04:42] LABS: ALBUMIN 3.5 G/DL (3.4-5.0); ANION GAP 5 (8-16); BLOOD UREA NITROGEN 60 MG/DL (7-18); CHLORIDE 95 MMOL/L (99-107); CREATININE 1.54 MG/DL (0.60-1.10); GLUCOSE 97 MG/DL (70-104); POTASSIUM 3.5 MMOL/L (3.5-5.1); SODIUM 131 MMOL/L (135-145); TOTAL CARBON DIOXIDE 30.7 MMOL/L (24-32); eGFR 44 ML/MIN
--- NOTE | 2019-05-18 04:47 | NUR ---
Critical value INR 5.0. notified
[2019-05-18 06:00] VITALS: BP 88/63
--- NOTE | 2019-05-18 06:10 | NUR ---
Patient in room MED 310. I have received report from KEVYN Aleman and had the opportunity to ask questions and assume patient care.
--- NOTE | 2019-05-18 06:48 | NUR ---
Problems reprioritized. Patient report given, questions answered & plan of care reviewed with KEVYN Bird.
[2019-05-18] MEDS: sacubitril/valsartan 24mg-26mg tablet PO SCH ×2 (08:00→20:48)
[2019-05-18] MEDS: spironolactone 25 MG tablet PO SCH ×2 (08:00→11:03)
[2019-05-18] MEDS: heparin, porcine 5000 units/ml vial SQ SCH (08:00)
[2019-05-18] MEDS ORDERED: warfarin 5mg tablet PO SCH (08:00)
[2019-05-18] MEDS: allopurinol 300 MG tablet PO SCH (08:18)
[2019-05-18] MEDS: tamsulosin 0.4mg capsule PO SCH (08:18)
[2019-05-18] MEDS: atorvastatin 20mg tablet PO SCH (08:19)
[2019-05-18] MEDS: primidone 250mg tablet PO SCH ×2 (08:19→20:49)
[2019-05-18 10:00] VITALS: BP 100/75
--- NOTE | 2019-05-18 12:00 | NUR ---
Student documentation: I have reviewed and agree with all interventions, med pass, and assessments performed and documented by SN Matt.
[2019-05-18 15:00] VITALS: BP 95/71
[2019-05-18 18:00] VITALS: BP 92/69
--- NOTE | 2019-05-18 18:15 | NUR ---
Problems reprioritized. Patient report given, questions answered & plan of care reviewed with KEVYN Villafana.
[2019-05-18] MEDS: latanoprost 0.005% 2.5ml ophthalmic drops EACHEYE SCH (20:49)
[2019-05-18] MEDS: traZODone 50mg tablet PO SCH (20:49)
[2019-05-18 22:00] VITALS: BP 112/71
[2019-05-19] MEDS: normal saline 1000ml 1,000 ML IV SCH ×2 (00:30→14:27)
--- NOTE | 2019-05-19 01:29 | NUR ---
PAGER ID: [phone] MESSAGE: JESUSMyla Valencia 78 M Rm 310, admitted for SALAZAR and CHF, INR of 5.0, who had trazadone and entresto, being Hypotensive, the lowest being 73/35 with HR in 90's and current BP, 86/65 and HR of 92. Asymptomatic. Leila [phone]
[2019-05-19 02:00] VITALS: BP 76/55
[2019-05-19 06:00] VITALS: BP 89/66
--- NOTE | 2019-05-19 06:13 | NUR ---
Patient in room MED 310. I have received report from KEVYN Villafana and had the opportunity to ask questions and assume patient care.
--- NOTE | 2019-05-19 06:16 | NUR ---
Problems reprioritized. Patient report given to Chauncey, questions answered & plan of care reviewed with .
[2019-05-19 06:23] LABS: BASOPHILS % (AUTO) 0.5 % (0-1); EOSINOPHILS % (AUTO) 0.3 % (0-6); HEMATOCRIT 45.3 % (42.0-52.0); HEMOGLOBIN 15.4 g/dl (14.0-17.9); LYMPHOCYTES # (AUTO) 1.1 X10'3 (1.1-4.8); LYMPHOCYTES % (AUTO) 22.9 % (21-51); MEAN CORPUSCULAR HEMOGLOBIN 33.7 PG (27.0-31.0); MEAN CORPUSCULAR VOLUME 99.4 FL (78-98); MONOCYTES # (AUTO) 0.6 X10'3 (0-0.9); MONOCYTES % (AUTO) 11.8 % (2-12); NEUTROPHILS # (AUTO) 3.2 X10'3 (1.8-7.7); NEUTROPHILS % (AUTO) 64.5 % (42-75); PLATELET COUNT 103 X10'3 (140-440); RED BLOOD COUNT 4.56 X10'6 (4.70-6.10); RED CELL DISTRIBUTION WIDTH 16.4 % (11.5-14.5); WHITE BLOOD COUNT 4.9 X10'3 (4.5-11.0)
[2019-05-19 06:35] LABS: ALBUMIN 3.2 G/DL (3.4-5.0); ANION GAP 3 (8-16); BLOOD UREA NITROGEN 50 MG/DL (7-18); BUN/CREATININE RATIO 32.1 (5.4-32.0); CALCIUM 8.3 MG/DL (8.5-10.1); CHLORIDE 96 MMOL/L (99-107); CREATININE 1.56 MG/DL (0.60-1.10); GLUCOSE 102 MG/DL (70-104); POTASSIUM 3.7 MMOL/L (3.5-5.1); SODIUM 131 MMOL/L (135-145); TOTAL CARBON DIOXIDE 31.6 MMOL/L (24-32); eGFR 43 ML/MIN
[2019-05-19] MEDS: spironolactone 25 MG tablet PO SCH ×2 (07:50→20:00)
[2019-05-19] MEDS: sacubitril/valsartan 24mg-26mg tablet PO SCH ×2 (07:50→20:00)
[2019-05-19] MEDS: tamsulosin 0.4mg capsule PO SCH (07:54)
[2019-05-19] MEDS: atorvastatin 20mg tablet PO SCH (07:54)
[2019-05-19] MEDS: allopurinol 300 MG tablet PO SCH (07:54)
[2019-05-19] MEDS: primidone 250mg tablet PO SCH ×2 (07:54→20:58)
[2019-05-19 11:00] VITALS: BP 89/50
--- NOTE | 2019-05-19 13:49 | NUR ---
PAGER ID: [phone] MESSAGE: RM [phone] Justino Suazo is having some oxygenation issues. He is sating at 88-89% while on 4L. He is complaining of not feeling and I am wondering if it is lei to the saturation levels. KEVYN Marie Ext [phone]
[2019-05-19 15:00] VITALS: BP 91/60
[2019-05-19 18:00] VITALS: BP 90/31
--- NOTE | 2019-05-19 18:15 | NUR ---
Patient in room MED 308. I have received report from Frank-KEVYN, and had the opportunity to ask questions and assume patient care.
--- NOTE | 2019-05-19 18:16 | NUR ---
Problems reprioritized. Patient report given, questions answered & plan of care reviewed with KEVYN Villafana.
[2019-05-19] MEDS: latanoprost 0.005% 2.5ml ophthalmic drops EACHEYE SCH (20:59)
[2019-05-19] MEDS: traZODone 50mg tablet PO SCH (21:00)
[2019-05-19] MEDS ORDERED: warfarin 3mg tablet PO ONE (21:00)
[2019-05-19 22:00] VITALS: BP 85/44
[2019-05-20 02:00] VITALS: BP 96/53
[2019-05-20] MEDS: normal saline 1000ml 1,000 ML IV SCH (02:56)
[2019-05-20] MEDS: traZODone 50mg tablet PO SCH (03:35)
--- NOTE | 2019-05-20 03:38 | NUR ---
patient refused his trazadone last night. He request the trazadone at this time because he is unable to sleep. Patient is alert, oriented x3.
[2019-05-20 06:02] LABS: BASOPHILS % (AUTO) 0.3 % (0-1); EOSINOPHILS % (AUTO) 0.1 % (0-6); HEMATOCRIT 46.7 % (42.0-52.0); HEMOGLOBIN 15.8 g/dl (14.0-17.9); LYMPHOCYTES # (AUTO) 1.3 X10'3 (1.1-4.8); LYMPHOCYTES % (AUTO) 20.4 % (21-51); MEAN CORPUSCULAR HEMOGLOBIN 33.7 PG (27.0-31.0); MEAN CORPUSCULAR HGB CONC 33.8 g/dL (33.0-36.5); MEAN CORPUSCULAR VOLUME 99.6 FL (78-98); MEAN PLATELET VOLUME 10.4 FL (7.4-10.4); MONOCYTES # (AUTO) 0.6 X10'3 (0-0.9); MONOCYTES % (AUTO) 9.8 % (2-12); NEUTROPHILS # (AUTO) 4.3 X10'3 (1.8-7.7); NEUTROPHILS % (AUTO) 69.4 % (42-75); PLATELET COUNT 100 X10'3 (140-440); RED BLOOD COUNT 4.69 X10'6 (4.70-6.10); RED CELL DISTRIBUTION WIDTH 15.7 % (11.5-14.5); WHITE BLOOD COUNT 6.3 X10'3 (4.5-11.0)
[2019-05-20 06:14] LABS: ALBUMIN 3.4 G/DL (3.4-5.0); ANION GAP 9 (8-16); BLOOD UREA NITROGEN 54 MG/DL (7-18); BUN/CREATININE RATIO 32.5 (5.4-32.0); CALCIUM 8.8 MG/DL (8.5-10.1); CHLORIDE 94 MMOL/L (99-107); CREATININE 1.66 MG/DL (0.60-1.10); GLUCOSE 104 MG/DL (70-104); POTASSIUM 4.1 MMOL/L (3.5-5.1); SODIUM 129 MMOL/L (135-145); TOTAL CARBON DIOXIDE 25.8 MMOL/L (24-32); eGFR 40 ML/MIN
--- NOTE | 2019-05-20 06:18 | NUR ---
Problems reprioritized. Patient report given to Shonda, questions answered & plan of care reviewed with .
--- NOTE | 2019-05-20 06:30 | NUR ---
Patient in room MED 310. I have received report from Brie BAGLEY and had the opportunity to ask questions and assume patient care.
[2019-05-20 07:00] VITALS: BP 89/70
[2019-05-20] MEDS: sacubitril/valsartan 24mg-26mg tablet PO SCH ×3 (08:00→21:24)
[2019-05-20] MEDS: spironolactone 25 MG tablet PO SCH ×3 (08:00→20:00)
[2019-05-20] MEDS: tamsulosin 0.4mg capsule PO SCH (08:47)
[2019-05-20] MEDS: primidone 250mg tablet PO SCH ×2 (08:49→21:23)
[2019-05-20] MEDS: atorvastatin 20mg tablet PO SCH (08:49)
[2019-05-20] MEDS ORDERED: atorvastatin 20mg tablet PO ONE (09:15)
[2019-05-20] MEDS ORDERED: tamsulosin 0.4mg capsule PO ONE (09:15)
[2019-05-20] MEDS ORDERED: primidone 250mg tablet PO ONE (09:15)
[2019-05-20] MEDS ORDERED: allopurinol 100mg tablet PO ONE (09:15)
[2019-05-20] MEDS: allopurinol 300 MG tablet PO SCH (09:55)
[2019-05-20 11:00] VITALS: BP 103/64
[2019-05-20 15:00] VITALS: BP 90/70
[2019-05-20 18:00] VITALS: BP 90/70
[2019-05-20] MEDS ORDERED: warfarin 7.5mg tablet PO ONE (21:00)
--- NOTE | 2019-05-20 21:00 | NUR ---
Per Dr. Morgan's notes dated 05/20/19 hold all diuretics.
[2019-05-20] MEDS: latanoprost 0.005% 2.5ml ophthalmic drops EACHEYE SCH (21:26)
[2019-05-20 22:00] VITALS: BP 94/60
[2019-05-21 02:00] VITALS: BP 99/59
[2019-05-21 06:00] VITALS: BP 85/65
--- NOTE | 2019-05-21 06:38 | NUR ---
Problems reprioritized. Patient report given, questions answered & plan of care reviewed with KEVYN Landaverde. Patient stable at shift change
--- NOTE | 2019-05-21 06:38 | NUR ---
Patient in room MED 310. I have received report from EKVYN Cervantes and had the opportunity to ask questions and assume patient care.
[2019-05-21 06:41] LABS: ALBUMIN 3.2 G/DL (3.4-5.0); ANION GAP 9 (8-16); BLOOD UREA NITROGEN 59 MG/DL (7-18); BUN/CREATININE RATIO 34.9 (5.4-32.0); CALCIUM 8.6 MG/DL (8.5-10.1); CHLORIDE 94 MMOL/L (99-107); CREATININE 1.69 MG/DL (0.60-1.10); GLUCOSE 98 MG/DL (70-104); POTASSIUM 4.4 MMOL/L (3.5-5.1); SODIUM 130 MMOL/L (135-145); TOTAL CARBON DIOXIDE 27.2 MMOL/L (24-32); eGFR 40 ML/MIN
[2019-05-21 07:30] LABS: BASOPHILS % (AUTO) 0.6 % (0-1); EOSINOPHILS % (AUTO) 0.2 % (0-6); HEMATOCRIT 47.1 % (42.0-52.0); HEMOGLOBIN 16.2 g/dl (14.0-17.9); LYMPHOCYTES # (AUTO) 1.5 X10'3 (1.1-4.8); LYMPHOCYTES % (AUTO) 25.5 % (21-51); MEAN CORPUSCULAR HEMOGLOBIN 34.6 PG (27.0-31.0); MEAN CORPUSCULAR HGB CONC 34.4 g/dL (33.0-36.5); MEAN CORPUSCULAR VOLUME 100.5 FL (78-98); MEAN PLATELET VOLUME 10.3 FL (7.4-10.4); MONOCYTES # (AUTO) 0.6 X10'3 (0-0.9); MONOCYTES % (AUTO) 9.8 % (2-12); NEUTROPHILS # (AUTO) 3.8 X10'3 (1.8-7.7); NEUTROPHILS % (AUTO) 63.9 % (42-75); PLATELET COUNT 104 X10'3 (140-440); RED BLOOD COUNT 4.69 X10'6 (4.70-6.10); RED CELL DISTRIBUTION WIDTH 16.2 % (11.5-14.5); WHITE BLOOD COUNT 5.9 X10'3 (4.5-11.0)
[2019-05-21] MEDS: spironolactone 25 MG tablet PO SCH (08:00)
[2019-05-21] MEDS: tamsulosin 0.4mg capsule PO SCH (08:47)
[2019-05-21] MEDS: sacubitril/valsartan 24mg-26mg tablet PO SCH (08:47)
[2019-05-21] MEDS: primidone 250mg tablet PO SCH (08:48)
[2019-05-21] MEDS: atorvastatin 20mg tablet PO SCH (08:48)
[2019-05-21] MEDS: allopurinol 300 MG tablet PO SCH (08:49)
[2019-05-21] MEDS: latanoprost 0.005% 2.5ml ophthalmic drops EACHEYE SCH (08:50)
[2019-05-21 10:00] VITALS: BP 80/57
--- NOTE | 2019-05-21 12:18 | NUR ---
Initial: Pt admit w/ SALAZAR secondary to overdiuresis per MD. Na 130; hyponatremia stable to d/c additional fluids per MD note. PO 75% avg heart healthy meals so far meeting needs. LBM 05/19. Will continue to monitor. Rec: 1. continue heart healthy diet 2. bowel care as needed 3. wt per rx Addendum: 05/21/19 at [address] Amended: Links added.
--- NOTE | 2019-05-21 14:45 | NUR ---
reviewed transfer instructions with pt and ,report phoned to marquis pineda,pt transfered via w/c via [facility] with all belongings,kamron dc'd right wrist,site clear
[2019-05-21] MEDS ORDERED: warfarin 7.5mg tablet PO ONE (21:00)
== END 2019-05-21 15:00 | DRG 682 ==
LOC: ER 15:54 → ED HOLD 17:37 → MED 3N 20:15
PROVIDERS: ADMIT Family Medicine; ATTEND Family Medicine
DX: N17.9 Acute kidney failure, unspecified (principal); I21.A1 Myocardial infarction type 2; I50.23 Acute on chronic systolic (congestive) heart failure; E87.1 Hypo-osmolality and hyponatremia; I11.0 Hypertensive heart disease with heart failure; I48.91 Unspecified atrial fibrillation; E86.1 Hypovolemia; T50.2X5A Adverse effect of carbonic-anhydrase inhibitors, benzothiadiazides and other diuretics, initial encounter; E78.5 Hyperlipidemia, unspecified; E86.0 Dehydration; Z95.2 Presence of prosthetic heart valve; Y92.89 Other specified places as the place of occurrence of the external cause
CPT/HCPCS: 36415; 71045; 80048; 80053; 83880; 84484; 85025; 85610; 87081; 93005; 97110; 97116; 97161; 97530; 99285; G0378; J7030